=== PATIENT | female | born 1970 | race African-American/Black ===

== ENCOUNTER 2020-03-14 08:43 | Emergency (ER) | payer SELFPAY ==
[~2020-03-14] VITALS: Ht 165.1 cm; Wt 136.0 kg
[2020-03-14] MEDS ORDERED: LORAZEPAM 2MG/ML CPJ IM ONE (09:30)
[2020-03-14] MEDS ORDERED: DIPHENHYDRAMINE 50MG/ML VIAL IM ONE (09:45)
[2020-03-14 10:06] LABS: CHLORIDE 100 mEq/L (98-107)
[2020-03-14 10:10] LABS: BASOPHILS % 0.6 % (0.0-2.0); EOSINOPHILS % 0.3 % (0.0-5.0); HEMATOCRIT. 33.1 % (36.0-48.0); HEMOGLOBIN. 11.2 g/dL (12.0-16.0); LYMPHOCYTES % 15.5 % (20.0-50.0); MEAN CORPUSCULAR HEMOGLOBIN 26.9 pg (28.0-32.0); MEAN CORPUSCULAR VOLUME 79.5 fL (81.0-99.0); MEAN PLATELET VOLUME 7.4 fl (7.4-10.4); MONOCYTES % 8.5 % (2.0-8.0); NEUTROPHILS % 75.1 % (40.0-76.0); PLATELET 554 x1000/uL (130-400); RED BLOOD CELL COUNT 4.16 mill/uL (4.2-5.4); RED CELL DISTRIBUTION WIDTH 16.7 % (11.6-14.6)
[2020-03-14] MEDS ORDERED: HALOPERIDOL LACTATE 5MG/ML VIAL IM ONE (10:15)
[2020-03-14 10:20] LABS: HCG SCREEN NEGATIVE
[2020-03-14 11:01] LABS: CREATINE KINASE 722 IU/L (26-192)
[2020-03-14] MEDS ORDERED: CLONIDINE 0.1MG TABLET PO ONE (14:30)
[2020-03-14] MEDS ORDERED: HYDRALAZINE HCL 25MG TABLET PO ONE (14:45)
[2020-03-14] MEDS ORDERED: RISPERIDONE 1MG TABLET PO SCH (15:15)
[2020-03-14] MEDS ORDERED: LOSARTAN POTASSIUM 25 MG TABLET PO ONE (16:00)
[2020-03-14] MEDS ORDERED: OLANZAPINE 10 MG/VIAL IM ONE (17:45)
[2020-03-14] MEDS: BENZTROPINE MESYLATE 1MG TABLET PO SCH ×2 (22:33→23:15)
[2020-03-14] MEDS ORDERED: LORAZEPAM 0.5MG TABLET PO ONE (23:15)
[2020-03-15 03:33] LABS: CLARITY URINE CLOUDY (CLEAR); COLOR URINE DK YELLOW (YELLOW); KETONES URINE 2+ (NEGATIVE); LEUKOCYTE ESTERASE URINE 3+ (NEGATIVE); NITRITE URINE NEGATIVE (NEGATIVE); OCCULT BLOOD URINE NEGATIVE (NEGATIVE); PROTEIN URINE TRACE (NEGATIVE); SPECIFIC GRAVITY URINE 1.028 (1.005-1.030)
[2020-03-15 03:43] LABS: *BENZODIAZEPINES SCREEN URINE NEGATIVE (NEGATIVE); *COCAINE SCREEN URINE NEGATIVE (NEGATIVE); METHADONE URINE SCREEN NEGATIVE (NEGATIVE); OPIATES URINE SCREEN NEGATIVE (NEGATIVE)
[2020-03-15 03:44] LABS: *AMPHETAMINES SCREEN URINE NEGATIVE (NEGATIVE); *BARBITURATES SCREEN URINE NEGATIVE (NEGATIVE); PHENCYCLIDINE URINE SCREEN NEGATIVE (NEGATIVE)
[2020-03-15 03:52] LABS: CANNABINOID URINE SCREEN PRESUMTIVE POSITIVE (NEGATIVE)
[2020-03-15 06:00] VITALS: BP 144/60
== END 2020-03-15 11:56 | disposition home or self-care (01) ==
LOC: ER 08:51
DX: F23 Brief psychotic disorder (principal); F91.8 Other conduct disorders; E11.9 Type 2 diabetes mellitus without complications; I10 Essential (primary) hypertension; Z03.818 Encounter for observation for suspected exposure to other biological agents ruled out; Z78.1 Physical restraint status; Z88.0 Allergy status to penicillin
CPT/HCPCS: 36415; 80048; 80305; 80307; 80329; 81003; 82550; 82962; 84703; 85025; 87426; 93005; 96372; 99285; J1200; J1630; J2060; J3490; Z7610